=== PATIENT | female | born 1955 | race African-American/Black ===

== ENCOUNTER 2016-11-18 06:21 | Inpatient (IN) | payer OTHER ==
[~2016-11-18] VITALS: Ht 160 cm; Wt 86.2 kg
--- NOTE | ~2016-11-18 | D ---
[facility] [place] [address] DISCHARGE SUMMARY Name: ASHLEY ENGELNiru Bustos Room #: 418-P [facility]#: [id number] Admission: 11/18/16 Attend Phys: Toni Vanegas MD Discharge: 11/19/16 Date of : 57 Report #: [id number] THIS REPORT FOR: //name// CC: Toni Vanegas DATE OF SERVICE: 11/19/2016 SHORT STAY SUMMARY CHIEF COMPLAINT: Severe palpitations and other symptoms. HISTORY OF PRESENT ILLNESS: The patient reports that her alarm went off at 5:50 a.m., the morning of admission and that suddenly she had many severe symptoms: Her heart was pounding, she was nauseated, she was dizzy, she could not talk, she was short of breath. She could not breathe. She got up, but was unable to remain standing and slid down the side of the wall. She kept trying to prevent herself from losing consciousness, then did report that she did lose consciousness. The paramedics said that a was present who reported that he caught her before she fell on to the floor. PAST MEDICAL HISTORY: Significant for anxiety and depression, obesity, stress. She has type 2 diabetes that is reasonably well controlled. She has lost a tremendous amount of weight in the last year intentionally. She has hypertension, hyperlipidemia, coronary artery disease. Several years ago, she had a coronary stent placed by Dr. Matthews. SOCIAL HISTORY: She lives alone and she is fully employed. She does not smoke, does not use alcohol, and does not use recreational drugs. REVIEW OF SYSTEMS: Other than feeling extremely weak, her review of systems was positive just for the elements listed in the HPI. LABORATORY DATA: Sodium is 141, potassium is low at 3.2. Creatinine is elevated at 1.6, glucose is 178. BUN is 36. Troponin is negative at less than 0.04. WBCs are 5.9 thousand, hemoglobin is 11.1 with 51% lymphocytes. Hemoglobin A1c was 5.9, showing actually good control of her diabetes. Urinalysis was negative. HOSPITAL COURSE: She was admitted with dehydration and acute kidney injury as well as weakness and hypokalemia and volume depletion. She was given intravenous fluids and potassium overnight. The following morning, her potassium had been replaced at 4.6, but it was noted that her magnesium had [address] [address] DISCHARGE SUMMARY Name: VICTORIA ENGELZOYA Bustos Room #: 418-P [facility] IN [facility].#: [id number] Admission: 11/18/16 Attend Phys: Toni Vanegas MD Discharge: 11/19/16 Date of : 57 Report #: [id number] dropped from 1.9 to low at 1.6. She was given intravenous magnesium for replacement. Her creatinine dropped from 1.6 to 1.3. Examination showed her to be awake and alert and oriented and able to give good history. Her oropharynx was dry on the first hospital day and had improved after overnight IV fluids on the second hospital day. The lungs were clear and the heart tones were normal. The abdomen was obese, soft, nontender. There is no edema and screening neurological examination was grossly intact. She was admitted for intravenous fluid replacement for electrolyte and fluid deficiencies, as well as her profound weakness. She tolerated her intravenous fluids and replacements well. Because her blood pressure was low, she did not require her antihypertensives. She did not have her Xanax available to help her sleep at night. She did not request the nurse to obtain her Xanax, and so she did not sleep well overnight. Her rhythm is regular. ADDITIONAL HISTORY/REVIEW OF SYSTEMS: She reported that for several days -- The weekend -- before being admitted, she went to the [facility] and spent time with friends. She had some wine spritzers to drink. She had not been taking the topiramate, which had been prescribed for several weeks earlier to help with weight loss. USUAL HOME MEDICATIONS: Bystolic 10 mg samples she obtains from Dr. Matthews 1 daily; irbesartan 300 mg 1 daily; alprazolam 1 mg once or twice daily and often at night to help with sleep; Livalo [address] Matthews to the lower her cholesterol; 81 mg aspirin daily; 50 mg hydrochlorothiazide daily; metformin 500 mg extended release 1 tablet 3 times daily; Dexilant 60 mg daily; glyburide 5 mg twice daily; and clonidine 0.2 mg, she takes one half tablet at bedtime to help with blood pressure, to help with sleep, and to help reduce her hot flashes of being primenopausal. Topiramate 25mg before meals was prescribed 11-03-16 to assist with further weight loss. DIAGNOSES: 1. Severe palpitations and other symptoms, could have been caused by her clonidine at bedtime wearing off through the night, leaving the unopposed beta-mary effect. 2. Volume depletion with elevated creatinine and low potassium. 3. Acute renal failure, resolved. [creatinine went from 1.6 to 1.3 with a change of 0.3 fullfilling the criteria ] 4. Hypomagnesemia. 5. Anxiety. 6. Stress. 7. Depression. 8. Stable coronary artery disease with a history of having had a stent. [address] [address] DISCHARGE SUMMARY Name: NORA ENGEL Room #: 418-P [facility]#: [id number] Admission: 11/18/16 Attend Phys: Toni Vanegas MD Discharge: 11/19/16 Date of : 57 Report #: [id number] 9. Obesity -- improved with weight loss over the last year. 10. Type 2 diabetes, well controlled with hemoglobin A1c of 5.9. 11. Hyperlipidemia. 12. Hot flashes -- vasomotor instability. 13. Adverse effect of medication - clonidine withdrawal. PLAN: She is to discontinue her clonidine and to see me in my office in about 1 week. She is to resume her hydrochlorothiazide after being off of it for 2 weeks. Potassium chloride 20 mEq once daily for 2 weeks. Her other medications remain unchanged. By: [id number] Toni Vanegas MD /nt
--- NOTE | ~2016-11-18 | EKG ---
[place] [address] [facility] [place] [address] ELECTROCARDIOGRAM REPORT Name: VICTORIA ENGELZOYA Bustos [id number] Admission: 11/18/16 Attend Phys: Discharge: Date of : 57 Report #: [id number] THIS REPORT FOR: //name// [facility] ED Test Date: 2016-11-18 Test Time: 06:38:59 Pat Name: NORA ENGEL Department: Room: Gender: F K 9 Police Officer: XIOMY : 1955 Requested By: Alexis Acuña Order Number: [id number] MD: Robel Jara Measurements Intervals [place] Rate: 58 P: 25 VT: 220 QRS: 6 QRSD: 91 T: 1 QT: 441 QTc: 434 Interpretive Statements Sinus rhythm Prolonged VT interval Compared to ECG 08/20/2014 13:32:40 First degree AV block now present T-wave abnormality no longer present Electronically Signed On 11-18-2016 8:31:41 CDT by Robel Jara [email or web address] <ELECTRONICALLY SIGNED> By: Robel Jara MD, [facility] 11/18/16 0831 7 7 Robel Jara MD, [facility] /EPI
[~2016-11-18 06:21] MED LIST: ANTIVERT25 MG PO; ASA81BEC PO; AVAPRO300 MG PO; BENICAR20 MG; BENICAR40 MG PO; CLONIDINE0.1 PO; COMBIVENT; DIABETA 5MG TABL5 MG PO; EFFIENT10 MG PO; GLUCOSE4 GM; HYDROCHLOROTHIA25 M2 PO; IBUPROFEN 800800 M1 PO; IRBESARTAN300 MG PO; LANTUS100 UNIT/M PO; LIPITOR 10 MG10 M1 PO; LOPRESSOR25 PO; METFORMIN HCL500 MG PO; NOVOLOG FL100 UNIT/M; PREVACID30 MG PO; TOPROL XL25 MG; TUMS PO; XANAX 0.5 MG0.5 MG PO
[2016-11-18 06:22] VITALS: BP 135/78
[2016-11-18 07:56] LABS: ABSOLUTE NEUTROPHILS 2.3 thou/uL (1.4-8.2); BASOPHILS 0.9 % (0.0-2.0); EOSINOPHILS 1.9 % (0.0-3.0); HEMATOCRIT 34.2 % (37.0-47.0); HEMOGLOBIN 11.1 gm/dL (12.0-15.0); LYMPHOCYTES 51.5 % (24.0-44.0); MCH 27.1 pg (26.0-34.0); MCHC 32.4 g/dL (28.0-37.0); MCV 83.8 fL (80.0-100.0); MONOCYTES 6.7 % (1.0-8.0); PLATELET COUNT 194 thou/uL (150-400); RBC 4.09 mil/uL (4.20-5.00); RDW 14.3 % (10.5-14.5); WBC 5.9 thou/uL (4.0-11.0)
[2016-11-18 07:57] LABS: MANUAL DIFF NO
[2016-11-18 07:59] LABS: ANION GAP 12 mmol/L (7-16); BUN 36 mg/dL (7-18); CALCIUM 9.6 mg/dL (8.5-10.1); CHLORIDE 105 mmol/L (98-107); CO2 24 mmol/L (21-32); CREATININE 1.6 mg/dL (0.6-1.0); GLUCOSE 178 mg/dL (74-106); POTASSIUM 3.2 mmol/L (3.5-5.1); SODIUM 141 mmol/L (136-145)
[2016-11-18 08:08] LABS: ALBUMIN 3.8 g/dL (3.4-5.0); ALKALINE PHOSPHATASE 64 U/L (46-116); MAGNESIUM 1.9 mg/dL (1.8-2.4); SGOT 19 U/L (15-37); SGPT 23 U/L (30-65); TOTAL BILIRUBIN 0.7 mg/dL (<0.1-1.0); TOTAL PROTEIN 7.3 g/dL (6.4-8.2); TROPONIN-I < 0.04 ng/mL (<0.04-0.07)
[2016-11-18 09:29] VITALS: BP 117/61
[2016-11-18 09:45] VITALS: BP 117/61
[2016-11-18] MEDS ORDERED: GLYBURIDE 2.52.5 MG PO (10:47)
[2016-11-18] MEDS ORDERED: LIVALO4 MG PO (10:48)
[2016-11-18] MEDS ORDERED: BYSTOLIC 5 MG5 M1 PO (10:50)
[2016-11-18 11:04] VITALS: BP 124/72
[2016-11-18] MEDS ORDERED: BENICAR/HCT PO (11:06)
[2016-11-18 20:00] VITALS: BP 112/66
[2016-11-19 02:11] LABS: GLYCOHEMOGLOBIN (HGB A1C) 5.9 % (4.8-5.6)
[2016-11-19 04:19] LABS: URINE BILIRUBIN NEGATIVE (Negative); URINE BLOOD NEGATIVE (Negative); URINE COLOR YELLOW; URINE GLUCOSE-RANDOM* NEGATIVE (Negative); URINE KETONES NEGATIVE (Negative); URINE LEUKOCYTES-REFLEX NEGATIVE (Negative); URINE PROTEIN (DIPSTICK) NEGATIVE (Negative); URINE UROBILINOGEN 0.2 E.U./dl (0.2-1.0)
[2016-11-19 04:30] VITALS: BP 140/78
[2016-11-19 06:17] LABS: HEMATOCRIT 35.9 % (37.0-47.0); HEMOGLOBIN 11.5 gm/dL (12.0-15.0); MCH 27.2 pg (26.0-34.0); MCHC 31.9 g/dL (28.0-37.0); MCV 85.1 fL (80.0-100.0); RBC 4.22 mil/uL (4.20-5.00); RDW 14.3 % (10.5-14.5); WBC 8.5 thou/uL (4.0-11.0)
[2016-11-19 06:29] LABS: ALBUMIN 3.7 g/dL (3.4-5.0); CALCIUM 9.4 mg/dL (8.5-10.1); CREATININE 1.3 mg/dL (0.6-1.0); MAGNESIUM 1.6 mg/dL (1.8-2.4); TOTAL BILIRUBIN 0.6 mg/dL (<0.1-1.0); TOTAL PROTEIN 7.3 g/dL (6.4-8.2)
[2016-11-19 06:30] LABS: POTASSIUM 4.6 mmol/L (3.5-5.1)
[2016-11-19 08:05] VITALS: BP 142/75
[2016-11-19] MEDS ORDERED: LIPITOR 10 MG10 M1 PO (08:59)
[2016-11-19 12:51] VITALS: BP 142/75
[2016-11-19 15:40] VITALS: BP 141/85
== END 2016-11-19 18:45 | disposition home or self-care (01) | DRG 684 ==
LOC: ER 06:21 → 4E 08:54 → EROBS 08:54 → 4E 09:46 → ENTRNSPT 11-19 18:42 → 4E 11-19 18:45
PROVIDERS: Emergency Medicine; Internal Medicine
DX: N17.9 Acute kidney failure, unspecified (principal); E11.9 Type 2 diabetes mellitus without complications; E87.6 Hypokalemia; F41.9 Anxiety disorder, unspecified; E86.0 Dehydration; N18.9 Chronic kidney disease, unspecified; I12.9 Hypertensive chronic kidney disease with stage 1 through stage 4 chronic kidney disease, or unspecified chronic kidney disease; E83.42 Hypomagnesemia; F43.9 Reaction to severe stress, unspecified; Z95.5 Presence of coronary angioplasty implant and graft; Z87.891 Personal history of nicotine dependence; Z79.84 Long term (current) use of oral hypoglycemic drugs; Z79.82 Long term (current) use of aspirin; Z79.899 Other long term (current) drug therapy; Z88.2 Allergy status to sulfonamides
CPT/HCPCS: 10183

== ENCOUNTER 2017-07-23 22:57 | Inpatient (IN) | payer OTHER ==
[~2017-07-23] VITALS: Ht 162.6 cm; Wt 86.2 kg
--- NOTE | ~2017-07-23 | H ---
[facility] [place] [address] HISTORY AND PHYSICAL Name: NORA ENGEL Akash Room #: 204-P [facility] IN ..#: [id number] Admission: 07/24/17 Attend Phys: Toni Vanegas MD Discharge: 07/24/17 Date of : 57 Report #: [id number] THIS REPORT FOR: //name// CC: Reid Gonzalezcuso Toni Vanegas DATE OF SERVICE: 07/24/2017 SHORT STAY SUMMARY, HISTORY AND PHYSICAL AND DISCHARGE SUMMARY CHIEF COMPLAINT: Weakness and dizziness. HISTORY OF PRESENT ILLNESS: The patient came to the Emergency Room location. Information is obtained from the medical record and from the patient. She came to the Emergency Room with her daughter. She was in the kitchen preparing a meal when she began having symptoms. She was dizzy. She had weakness in both legs. She was confused and her speech was slurred. The Emergency Room physician's examination did reveal some variable weakness in her legs. The patient also complained breathing trouble. Because of the abnormal physical examination in a patient at high risk for stroke because of her medical problems, admission was indicated. PAST MEDICAL HISTORY: Significant for longstanding diabetes, obesity, anxiety, reflux, hypertension, hyperlipidemia, and insomnia. In the past, she has required insulin to manage her diabetes, but has not needed insulin recently. She has chronic kidney disease stage 3 with an EGFR of 46 on her last office laboratory work. Her most recent hemoglobin A1c was 6.0. She has had a history of coronary artery disease and a stent by Dr. Matthews. CURRENT MEDICATIONS: Metformin 500 mg 3 times daily, alprazolam 1 mg tablet twice daily or 3 times daily as needed for nerves and stress, Dexilant 60 mg daily for reflux, 81 mg aspirin daily, Tums chewable tablets as needed for reflux, irbesartan 300 mg daily and also hydrochlorothiazide 50 mg daily, Glyburide 5 mg 3 times daily. Pravastatin 40 mg at bedtime. Bystolic 10 mg once daily. Vitamin D 5000 units once daily. NovoLog pen sliding scale on an as-needed basis. ALLERGIES: SULFONAMIDE ANTIBIOTICS. SOCIAL HISTORY: She is and used cigarettes in the past, but not [facility] [address] [place] [address] HISTORY AND PHYSICAL Name: NORA ENGEL Room #: 204-P [facility] IN [facility]#: [id number] Admission: 07/24/17 Attend Phys: Toni Vanegas MD Discharge: 07/24/17 Date of : 57 Report #: [id number] currently. She does not use alcohol nor recreational drugs of abuse. She lives independently by herself. REVIEW OF SYSTEMS: Negative except for the HPI above. PHYSICAL EXAMINATION: GENERAL: She is awake and alert and oriented. HEENT: Unremarkable. LUNGS: Clear. CARDIOVASCULAR: The heart tones are normal and regular. ABDOMEN: Obese, soft and nontender. EXTREMITIES: There is no clubbing, cyanosis or edema in the extremities and light touch is grossly intact in her feet. The skin of her feet is also intact. IMPORTANT LABORATORY DATA: Her potassium in the ER was mildly low at 3.2, was replaced and rechecked 6 hours later at 3.7. Her creatinine was 1.5, which matches her office creatinine of 1.4. Her INR is 1.0. WBCs were 9.3 thousand, hemoglobin was 12.3, which is slightly elevated for her baseline hemoglobin of 11.1. IMAGING: CT of the head without contrast was unremarkable. Mild microvascular changes were present in the degree of atrophy was consistent with her age. CTA of the head and neck showed mild atherosclerotic plaquing throughout without evidence of aneurysm formation. All arteries were widely opened. There is a small polyp in the posterior portion of the left sphenoid sinus. The patient was admitted for a careful observation and further evaluation in view of her fluctuating strength in her legs. Her blood pressure was markedly high at 183/100 when admitted to the Emergency Room, but fell without further therapy. SUMMARY OF HOSPITAL COURSE: The patient was admitted and followed closely. She was seen by Dr. Yuridia Cardona of the Neurology Department. Dr. Cardona is detailed physical examination and consultation noted that she did have a right proximal thigh muscle weakness that Dr. Cardona suspected was a diabetic neuropathy. Dr. Cardona noted no evidence for an acute stroke. Dr. Cardona noted that she does have pain in her right hip when she tries to flex her right knee and pain in her right hip. She noticed weakness in her right hip and she noted pain when she tried to move her right knee and ankle. X-rays of the right foot did show degenerative changes and Dr. Cardona suggested the benefit of an anti-inflammatory medication. DISCHARGE DIAGNOSES: 1. 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 2. Osteoarthritis of the right foot. [facility] [address] [place] [address] HISTORY AND PHYSICAL Name: NORA ENGEL Room #: 204-P [facility] IN M.R.#: [id number] Admission: 07/24/17 Attend Phys: Toni Vanegas MD Discharge: 07/24/17 Date of : 57 Report #: [id number] 3. Accelerated hypertension that resolved. 4. Type 2 diabetes. 5. History of coronary artery disease and a stent. 6. Gastroesophageal reflux disease. 7. Hyperlipidemia. 8. Anxiety. 9. Low potassium, replaced. 10. Chronic kidney disease stage 3 -- stable. 11. Other medical problems as in the HPI above. PLAN: The patient is discharged with the knowledge that the weakness she has in her right hip is not from a stroke, but more likely from a peripheral nerve problem caused by her diabetes. She was informed that the pain in her right foot is secondary to degenerative changes. She is to use ibuprofen for the pain in her right foot. She is to continue to follow her current diet and her current medications as listed in the body of the report above. She is to see me in my office in 1-2 weeks and to bring all of her medications with her. An EMG may be considered to further document the difficulties with her right thigh. Dr. Cardona commented that the right thigh weakness is a peripheral nerve problem. An MRI of the head was ordered, but the patient declined because of the feeling of claustrophobia. By: 57 47 Toni Vanegas MD /nt
--- NOTE | ~2017-07-23 | EKG ---
[place] [address] [facility] [place] [address] ELECTROCARDIOGRAM REPORT Name: VICTORIA ENGELZOYA Bustos Room #: 204-P [facility] IN [facility].#: [id number] Admission: 07/24/17 Attend Phys: Toni Vanegas MD Discharge: Date of : 57 Report #: [id number] THIS REPORT FOR: //name// [facility] ED Test Date: 2017-07-23 Test Time: 23:22:55 Pat Name: NORA ENGEL Department: Room: Gender: F Registered Nurse Midwife: CATALINA : 1955 Requested By: Marlen Ramos Order Number: [id number] MD: Robel Jara Measurements Intervals [place] Rate: 66 P: 26 [place]: 197 QRS: -2 QRSD: 91 T: 3 QT: 423 QTc: 444 Interpretive Statements Sinus rhythm Borderline T abnormalities, inferior leads Compared to ECG 11/18/2016 06:38:59 T-wave abnormality now present First degree AV block no longer present Electronically Signed On 07-24-2017 8:52:00 CDT by Robel Jara [email or web address] <ELECTRONICALLY SIGNED> By: Robel Jara MD, [facility] 07/24/17 0852 [id number] Robel Jara MD, [facility] /EPI
[~2017-07-23 22:57] MED LIST changes: +BENICAR/HCT PO; +BYSTOLIC 5 MG5 M1 PO; +GLYBURIDE 2.52.5 MG PO; +LIVALO4 MG PO
[2017-07-23 23:03] VITALS: BP 183/100
[2017-07-23 23:27] LABS: ABSOLUTE NEUTROPHILS 5.4 thou/uL (1.4-8.2); BASOPHILS 0.6 % (0.0-2.0); EOSINOPHILS 0.5 % (0.0-3.0); HEMOGLOBIN 12.3 gm/dL (12.0-15.0); LYMPHOCYTES 34.7 % (24.0-44.0); MCH 27.2 pg (26.0-34.0); MCHC 33.1 g/dL (28.0-37.0); MCV 82.3 fL (80.0-100.0); MONOCYTES 5.7 % (1.0-8.0); POLYS 58.5 % (36.0-66.0); RDW 14.2 % (10.5-14.5); WBC 9.3 thou/uL (4.0-11.0)
[2017-07-23 23:28] LABS: POC CA IONIZED 4.8 mg/dL (4.5-5.3); POC CREATININE 1.5 mg/dL (0.6-1.3); POC HEMOGLOBIN 12.9 g/dL (12.0-15.0); POC POTASSIUM 3.2 mmol/L (3.5-5.1)
[2017-07-23 23:28] LABS: PLATELET COUNT 210 thou/uL (150-400)
[2017-07-24] MEDS ORDERED: PRAVACHOL40 MG PO (01:22)
[2017-07-24] MEDS ORDERED: CLONIDINE0.1 PO (01:23)
[2017-07-24] MEDS ORDERED: NEXIUM40 MG PO (01:24)
[2017-07-24] MEDS ORDERED: BENICAR40 MG PO (01:24)
[2017-07-24 01:36] VITALS: BP 146/88
[2017-07-24 02:08] VITALS: BP 152/67
[2017-07-24 04:45] LABS: PROTIME 10.4 Seconds (9.3-11.4)
[2017-07-24 07:23] VITALS: BP 117/70
[2017-07-24 16:56] VITALS: BP 157/102
[2017-07-24] MEDS ORDERED: XANAX1 MG PO (18:58)
[2017-07-24] MEDS ORDERED: DEXILANT60 MG PO (18:58)
[2017-07-24] MEDS ORDERED: IRBESARTAN300 MG PO (18:58)
[2017-07-24] MEDS ORDERED: GLYBURIDE 5 MG T5 M1 PO (18:58)
[2017-07-24] MEDS ORDERED: METFORMIN HCL500 MG PO (18:58)
[2017-07-24] MEDS ORDERED: HYDROCHLOROTHIA50 MG PO (18:58)
[2017-07-24] MEDS ORDERED: ADULT LOW DOSE81 MG PO (18:58)
[2017-07-24] MEDS ORDERED: BYSTOLIC10 MG PO (18:58)
[2017-07-24 19:30] VITALS: BP 157/102
== END 2017-07-24 19:50 | disposition home or self-care (01) | DRG 74 ==
LOC: ER 22:57 → 2N 07-24 00:46 → EROBS 07-24 00:46 → 2N 07-24 01:40
PROVIDERS: Emergency Medicine
DX: E11.42 Type 2 diabetes mellitus with diabetic polyneuropathy (principal); E11.65 Type 2 diabetes mellitus with hyperglycemia; F41.9 Anxiety disorder, unspecified; E87.6 Hypokalemia; E66.9 Obesity, unspecified; E78.5 Hyperlipidemia, unspecified; G47.00 Insomnia, unspecified; N18.3 Chronic kidney disease, stage 3 (moderate); I25.10 Atherosclerotic heart disease of native coronary artery without angina pectoris; E11.22 Type 2 diabetes mellitus with diabetic chronic kidney disease; I12.9 Hypertensive chronic kidney disease with stage 1 through stage 4 chronic kidney disease, or unspecified chronic kidney disease; M19.071 Primary osteoarthritis, right ankle and foot; K21.9 Gastro-esophageal reflux disease without esophagitis; Z95.5 Presence of coronary angioplasty implant and graft; Z88.2 Allergy status to sulfonamides; Z87.891 Personal history of nicotine dependence; Z68.32 Body mass index [BMI] 32.0-32.9, adult; Z79.82 Long term (current) use of aspirin; Z79.899 Other long term (current) drug therapy
CPT/HCPCS: 10081

== ENCOUNTER 2019-12-28 11:50 | Emergency (ER) | payer BC, OTHER ==
[~2019-12-28] VITALS: Ht 160 cm; Wt 87.6 kg
--- NOTE | ~2019-12-28 | EMS ---
[facility] [address] [place] [address] EMS Patient Care Report Name: NORA ENGEL Room #: REG Du#: [id number] Admission: 12/28/19 Attend Phys: Discharge: Date of : 57 Report #: [id number] THIS REPORT FOR: //name// Report Transmitted: 12/28/2019 12:02 EMS Care Summary [facility] MED-ACT Incident [id number] @ 12/28/2019 10:42 Incident Location [address] [place] [address] Patient SLY ENGEL Female, 64 Years 1955 Patient Address [address] [place] [id number] Patient History Diabetes,Hypertension (HTN),Hyperlipidemia, Patient Allergies Sulfa, Patient Medications Bystolic, Clonidine, Glyburide, Hydrochlorothiazide (Hctz), Lexapro, Isoptin, Metformin, Motrin, Xanax, Pravastatin, Amlodipine, Chief Complaint Right Side Pain Disposition Transported No Lights/[place] Reason Falls Transported To [facility] Narrative [id number] was dispatched to the listed location for a code 2 fall. Upon arrival patient was lying prone on the floor in the care of her co workers. Patient [facility] [address] [place] [address] EMS Patient Care Report Name: NORA ENGEL Room #: REG [facility] [place]#: [id number] Admission: 12/28/19 Attend Phys: Discharge: Date of : 57 Report #: [id number] stated that she had just gotten her flu shot and she walking and accidentally tripped, causing her to fall forward against a wall and fall to the floor. Patient stated that when she fell forward she hit her head slightly on the wall. Patient denied any loss of consciousness, head or neck pain, or any blood thinners. Patients chief complaint was pain in her ribs around the 5th and 6th intercostals on the right side that radiated to her back. Patient stated that it hurt to take a deep breath and was tender on palpation. Upon secondary assessment there was no deformities, contusions, or crepitus. Patient was assisted by EMS and fire from the ground to the cot and brought to the ambulance. Patient was denying wanting to be transported at first but could not get up off the cot due to the pain. EMS convinced patient to get evaluated at the ER and patient agreed. Patient denied any cardiac related chest pain, headache, neck pain, abd. pain, N/V/D, vision changes, or N/V/D. Initial Vitals @10:54P: 82,R: 18,BP: 155/83,Pain: 10/10,GCS: 15,Glucose: 116,SpO2: 98,Revised Trauma: 12, Assessments @10:52MENTAL:Person Oriented,Time Oriented,Place Oriented,Event Oriented,SKIN:HEENT:Head/Face: No Abnormalities,Neck/Airway: No Abnormalities,LUNG SOUNDS:General: No Abnormalities,Left Upper: No Abnormalities,Right Upper: No Abnormalities,Left Lower: No Abnormalities,Right Lower: No Abnormalities,ABDOMEN:General: No Abnormalities,Left Upper: No Abnormalities,Right Upper: No Abnormalities,Left Lower: No Abnormalities,Right Lower: No Abnormalities,PELVIS//GI:No Abnormalities,EXTREMITIES:Left Arm: No Abnormalities,Right Arm: No Abnormalities,Left Leg: No Abnormalities,Right Leg: No Abnormalities,PULSE:NEURO:No Abnormalities, Impression Back Pain Timeline 10:39,Call Received 10:39,Psap Call 10:42,Dispatched 10:43,En Route 10:49,On Scene 10:51,At Patient 10:54,BP: 155/83 M,PULSE: 82,RR: 18 R,SPO2: 98 Ox,ETCO2: ,B,PAIN: 10,GCS: 15, 11:32,Depart Scene 11:45,At Destination 12:18,Call Closed [facility] [address] [place] [address] EMS Patient Care Report Name: VICTORIA ENGELSCELYN Akash [id number] Admission: 12/28/19 Attend Phys: Discharge: Date of : 57 Report #: [id number] Disclaimer [email or web address] Copyright 2020 [employer] This EMS Care Summary contains data elements from the applicable legal record (which may be displayed differently). It is designed to provide pertinent information for the following purposes: continuity of care, clinical quality, and state data reporting. The complete legal record is available to ED staff and administrators of the receiving hospital in [employer] Patient Tracker. All data is provided "as is."
[~2019-12-28 11:50] MED LIST changes: +ADULT LOW DOSE81 MG PO; +BYSTOLIC10 MG PO; +DEXILANT60 MG PO; +GLYBURIDE 5 MG T5 M1 PO; +HYDROCHLOROTHIA50 MG PO; +NEXIUM40 MG PO; +PRAVACHOL40 MG PO; +XANAX1 MG PO
[2019-12-28] MEDS ORDERED: LIDOCAINE PAIN1 EACH TRANSDERM (12:57)
[2019-12-28] MEDS ORDERED: NORCO 5-325 TA1 EAC2 PO (12:57)
[2019-12-28 13:17] VITALS: BP 106/63
== END 2019-12-28 13:17 | disposition home or self-care (01) ==
LOC: ER 11:50
DX: S20.211A Contusion of right front wall of thorax, initial encounter (principal); S09.90XA Unspecified injury of head, initial encounter; I10 Essential (primary) hypertension; E11.9 Type 2 diabetes mellitus without complications; Z79.82 Long term (current) use of aspirin; Z79.899 Other long term (current) drug therapy; Z88.2 Allergy status to sulfonamides; Z87.891 Personal history of nicotine dependence; W01.0XXA Fall on same level from slipping, tripping and stumbling without subsequent striking against object, initial encounter; Y93.89 Activity, other specified; Y92.89 Other specified places as the place of occurrence of the external cause; Y99.8 Other external cause status

== ENCOUNTER → 2020-11-13 | Outpatient (CLI) | payer OTHER ==
[~2020-11-13] MED LIST changes: +LIDOCAINE PAIN1 EACH TRANSDERM; +NORCO 5-325 TA1 EAC2 PO
== END ==
LOC: CAT 13:31
PROVIDERS: ATTEND Internal Medicine Cardiovascular Disease
DX: Z13.6 Encounter for screening for cardiovascular disorders (principal); I25.10 Atherosclerotic heart disease of native coronary artery without angina pectoris; E78.00 Pure hypercholesterolemia, unspecified

== ENCOUNTER → 2020-11-13 | Outpatient (CLI) | payer BC, OTHER | LOC: SJCVCIMAG 07:39 | PROVIDERS: ATTEND Internal Medicine Cardiovascular Disease | DX: I49.3 Ventricular premature depolarization (principal); I44.0 Atrioventricular block, first degree; I25.10 Atherosclerotic heart disease of native coronary artery without angina pectoris; R06.00 Dyspnea, unspecified; E78.5 Hyperlipidemia, unspecified; I10 Essential (primary) hypertension; E11.9 Type 2 diabetes mellitus without complications; Z87.891 Personal history of nicotine dependence; Z79.82 Long term (current) use of aspirin; Z79.899 Other long term (current) drug therapy; Z88.2 Allergy status to sulfonamides; Z98.61 Coronary angioplasty status ==